=== PATIENT | female | born 1990 | race American Indian/Alaskan Native ===

== ENCOUNTER 2018-09-29 14:12 | Outpatient (CLI) | payer BC, MEDICAID ==
[2018-09-29] MEDS ORDERED: LACTATED RINGERS 1,000 ML IV ONE (15:25)
[2018-09-29 15:54] VITALS: BP 118/83
[2018-09-29 16:53] LABS: Bilirubin,Urine NEG (Negative); Blood,Urine NEG (Negative); Color,Urine Yellow (Yellow); Mucus,Urine FEW /HPF; Protein,Urine <15 mg/dL mg/dL (Negative)
== END 2018-09-29 17:10 | disposition home or self-care (01) ==
LOC: TRG 14:12
PROVIDERS: ATTEND Obstetrics & Gynecology
DX: O62.9 Abnormality of forces of labor, unspecified (principal); Z3A.35 35 weeks gestation of pregnancy
CPT/HCPCS: 59025; 81001; 87086; 96360; J7120

== ENCOUNTER 2018-10-09 12:12 | Inpatient (IN) | payer MEDICAID ==
[2018-10-09 13:16] LABS: Bilirubin,Urine NEG (Negative); Blood,Urine NEG (Negative); Color,Urine Yellow (Yellow); Mucus,Urine FEW /HPF; Protein,Urine <15 mg/dL mg/dL (Negative)
[2018-10-09 13:25] LABS: Amphetamine Screen,Urine PRESUMPTIVE NEGATIVE; Benzodiazepines Screen,Urine PRESUMPTIVE NEGATIVE; Cannabinoid Screen,Urine PRESUMPTIVE NEGATIVE; Cocaine Screen,Urine PRESUMPTIVE NEGATIVE; Methadone Screen,Urine PRESUMPTIVE NEGATIVE; Opiate Screen,Urine PRESUMPTIVE NEGATIVE
[2018-10-09] MEDS ORDERED: STADOL IV PRN (14:05)
[2018-10-09] MEDS ORDERED: XYLOCAINE 2% INFILTRATI ONE (14:05)
[2018-10-09] MEDS ORDERED: MINERAL OIL PO PRN (14:05)
[2018-10-09] MEDS ORDERED: ZOFRAN IV PRN (14:05)
[2018-10-09] MEDS ORDERED: SUBLIMAZE IV PRN (14:05)
[2018-10-09] MEDS ORDERED: BRETHINE SUB-Q PRN (14:05)
[2018-10-09] MEDS ORDERED: BRETHINE IVP PRN (14:05)
[2018-10-09 14:39] LABS: Hemoglobin 8.4 gm/dl (10.1-14.3); Mean Corpuscular HGB Conc 31 % (30-34); Platelet Count 259 K/mm3 (140-440); Red Blood Count 3.92 M/mm3 (3.65-5.03); Red Cell Distribution Width 17.5 % (13.2-15.2)
[2018-10-09 14:47] LABS: Mean Corpuscular Volume 69 fl (79-97)
[2018-10-09] MEDS: LACTATED RINGERS 1,000 ML IV SCH ×2 (14:59→22:47)
[2018-10-09] MEDS ORDERED: PITOCin/NS 20 UNIT/1000ML DRIP 20 UNITS/1,000 ML BAG IV SCH (15:00)
[2018-10-09] MEDS: PITOCin/NS 30 UNIT/500ML 30 UNITS/500 ML BAG IV SCH (15:26)
--- NOTE | 2018-10-09 16:58 | History and Physical Report ---
History of Present Illness Date of examination: 10/09/18 Date of admission: 10/09/18 13:48 Chief complaint: contractions History of present illness: pt presents for r/o labor, c/o contractions. SROM in triage. Menstrual History Regularity: irregular Menses every: irregular days Duration: 5-7 LMP: 03/13/2018 LMP reliability: definite LMP character: normal test type: urine test Date: 07/13/2018 BC at conception: none Planned ? yes EDC Calculations LMP: 12/18/2018 EDC Confirmation: 10/28/2018 Gestational Age: 24 5/7 weeks Past History : 3 Term Births: 2 Premature Births: 0 Living Children: 2 Para: 2 Mult. Births: 0 Prev : 0 Prev. attempt? none Aborta: 0 Elect. Ab: 0 Spont. Ab: 0 Ectopics: 0 # 1 Delivery date: 12/17/2007 Weeks Gestation: 39 labor: no Delivery type: Hours of labor: 12 Anesthesia type: epidural Delivery location: [facility] Sex: Female weight: 6-9 Name: Alicia # 2 Delivery date: 03/16/2014 Weeks Gestation: 38 Delivery type: Forceps Hours of labor: 12 Anesthesia type: epidural Delivery location: [facility] Sex: female weight: 6.31 Name: Aguilar Past Medical History: Reviewed history from 12/16/2013 and no changes required: Negative Past Medical History Past Surgical History: Reviewed history from 12/16/2013 and no changes required: negative Past Medical History Anesthesia Complications: negative Anemia: negative Autoimmune Disorder: negative Bleeding Disorder: negative Blood Transfusions: negative Breast Disease: negative Diabetes: negative Heart Disease: negative Hypertension: negative Hepatitis/Liver Disease: negative Kidney Disease/UTI: negative Neurologic/Epilepsy/Migraines: negative Phlebitis/Varicosities: negative Psychiatric: negative Pulmonary Disease/Asthma: negative Thyroid Disease: negative Hospitalizations: negative Surgery (Non-hematologist oncologist): negative Abnormal PAP: negative Social Hx: Patient is single Smoking History: Patient is a former smoker. Infection History Hx of STD: none Hepatitis B Risk Eval: low risk Personal hx. of genital herpes: no Partner hx. of genital herpes: no Rash, Viral, or Febrile illness since last LMP? no Genetic History Congenital Heart Defect: Mom: no Dad: no [place] Disease: Mom: no Dad: no Thalassemia Mom: no Dad: no Neural Tube Defect Mom: no Dad: no Down's Syndrome Mom: no Dad: no Perez-Sachs Mom: no Dad: no Sickle Cell Disease/Trait Mom: no Dad: no Hemophilia Mom: no Dad: no Muscular Dystrophy Mom: no Dad: no Cystic Fibrosis Mom: no Dad: no Bisi Chorea Mom: no Dad: no Mental Retardation Mom: no Dad: no Fragile X Mom: no Dad: no Other Genetic/Chromosomal Disorder Mom: no Dad: no Child w/other defect Mom: no Dad: no Enviromental Exposures Xray Exposure: no Medication, drug, or alcohol use since LMP: no Chemical/Other Exposure: no Exposure to Cat Liter: no Hx of Parvovirus (Fifth Disease): no Occupational Exposure to Children: none Current Allergies (reviewed today): No known allergies Past History Past Medical History: other (see HPI) Past Surgical History: other (see HPI) PRINTING TABLE HAND History: other (see HPI) Family/Genetic History: other (see HPI) Social history: other (see HPI) - Obstetrical History : 3 Medications and Allergies Allergies Allergy/AdvReac Type Severity Reaction Status Date / Time No Known Allergies Allergy Verified 09/29/18 15:22 Home Medications Medication Instructions Recorded Confirmed Last Taken Type No Known Home Medications [No 09/29/18 09/29/18 Unknown History Reported Home Medications] Active Meds: Active Medications Butorphanol Tartrate (Stadol) 2 mg IV Q2H PRN PRN Reason: Pain , Severe (7-10) Ephedrine Sulfate (Ephedrine Sulfate) 10 mg IV Q2M PRN PRN Reason: Hypotension Fentanyl (Sublimaze) 100 mcg IV Q2H PRN PRN Reason: Labor Pain Oxytocin/Sodium Chloride (Pitocin/Ns 20 Unit/1000ml Drip) 20 units in 1,000 mls @ 125 mls/hr IV DIRECT GERA Oxytocin/Sodium Chloride (Pitocin/Ns 30 Unit/500ml) 30 units in 500 mls @ 4 mls/hr IV TITR GERA; Protocol Last Titration: 10/09/18 16:24 Dose: 0 ml/hr, 0 mls/hr Documented by: Lactated Ringer's (Lactated Ringers) 1,000 mls @ 125 mls/hr IV DIRECT GERA Last Admin: 10/09/18 14:59 Dose: 125 mls/hr Documented by: Mineral Oil (Mineral Oil) 30 ml PO QHS PRN PRN Reason: Constipation Ondansetron HCl (Zofran) 4 mg IV Q8H PRN PRN Reason: Nausea And Vomiting Terbutaline Sulfate (Brethine) 0.25 mg SUB-Q ONCE PRN PRN Reason: Hyperstimulation/Hypertonicity Terbutaline Sulfate (Brethine) 0.25 mg IVP ONCE PRN PRN Reason: Hyperstimulation/Hypertonicity Review of Systems All systems: negative Genitourinary: leakage of fluid (clear), contractions (irregular) - Vital Signs Vital signs: Vital Signs Pulse BP 116 H 136/93 10/09/18 12:35 10/09/18 12:35 Temp Pulse Resp BP Pulse Ox 97.9 F 100 H 20 113/67 10/09/18 16:32 10/09/18 16:30 10/09/18 16:32 10/09/18 16:30 - Physical Exam Breasts: Positive: normal Cardiovascular: Regular rate, Normal S1, Normal S2 Lungs: Positive: Clear to auscultation Abdomen: Positive: normal appearance, soft, normal bowel sounds. Negative: distention, tenderness Vulva: both: normal Vagina: Positive: normal moisture. Negative: discharge Cervix: Negative: lesion, discharge Uterus: Positive: normal size, normal contour Adnexa: both: normal Anus/Rectum: Positive: normal perianal skin, heme negative. Negative: rectal mass, hemorrhoids Extremities: Positive: normal Deep Tendon Reflex Grade: Normal +2 - Obstetrical FHR: auscultation normal Uterine Contraction Monitor Mode: External Uterine Contraction Pattern: Irregular Uterine Tone Measurement Phase: Contraction Uterine Contraction Intensity: Mild Results Result Diagrams: 10/09/18 14:05 Abnormal lab results 10/09/18 Range/Units 14:05 Hgb 8.4 L (10.1-14.3) gm/dl Hct 27.0 L (30.3-42.9) % MCV 69 L (79-97) fl MCH 22 L (28-32) pg RDW 17.5 H (13.2-15.2) % All other labs normal. Assessment and Plan Patient presents to triage with c/o contractions. SROM clear fluid noted while in triage. SVE 1/0/-3, vertex, per picking supervisor. Routine admission orders placed in EMR, pitocin augmentation. GBS negative. Category 1 tracing, irregular contractions noted at this time. VSSAF. Will continue to monitor, plan for .
--- NOTE | 2018-10-09 17:59 | Ultrasound Report ---
PROCEDURE: US OB LIMITED TECHNIQUE: Limited OB ultrasound. LMP 01/21/2018 with estimated age 37 weeks 2 days and EDC 10/28/2018 HISTORY: position COMPARISONS: None FINDINGS: Limited evaluation demonstrates a cephalic positioning of the fetus. heart tones are 138 bpm IMPRESSION: Single viable at 37 weeks 2 days in a cephalic position. This document is electronically signed by Ashley Putnam MD., Oct 09 2018 05:57:38 PM ET
--- NOTE | 2018-10-09 21:43 | Progress Note ---
Assessment and Plan - Patient Problems (1) Active labor at term Current Visit: No Status: Acute (2) Premature rupture of membranes Current Visit: No Status: Acute Subjective - Subjective Date of service: 10/09/18 Principal diagnosis: IUP@37weeks. SROM Patient reports: movement normal, contractions, no new complaints Objective - Vital Signs Vital Signs: Vital Signs - 12hr 10/09/18 10/09/18 10/09/18 12:35 12:36 12:40 Temperature 98.8 F Pulse Rate 116 H 123 H 122 H Respiratory 20 Rate Blood Pressure 136/93 140/90 Blood Pressure 138/91 [Left] O2 Sat by Pulse Oximetry 10/09/18 10/09/18 10/09/18 12:41 12:51 13:06 Temperature Pulse Rate 123 H 118 H 116 H Respiratory Rate Blood Pressure 138/91 131/87 130/81 Blood Pressure [Left] O2 Sat by Pulse Oximetry 10/09/18 10/09/18 10/09/18 13:21 13:37 14:25 Temperature 98.5 F Pulse Rate 112 H 102 H Respiratory 20 Rate Blood Pressure 125/78 126/70 Blood Pressure [Left] O2 Sat by Pulse Oximetry 10/09/18 10/09/18 10/09/18 14:59 16:01 16:30 Temperature Pulse Rate 101 H 92 H 100 H Respiratory Rate Blood Pressure 136/86 123/69 113/67 Blood Pressure [Left] O2 Sat by Pulse Oximetry 10/09/18 10/09/18 10/09/18 16:32 17:00 17:30 Temperature 97.9 F Pulse Rate 82 83 Respiratory 20 Rate Blood Pressure 118/69 121/80 Blood Pressure [Left] O2 Sat by Pulse Oximetry 10/09/18 10/09/18 10/09/18 18:09 18:13 18:29 Temperature 97.8 F Pulse Rate 82 88 Respiratory Rate Blood Pressure 150/90 146/88 Blood Pressure [Left] O2 Sat by Pulse Oximetry 10/09/18 10/09/18 10/09/18 18:59 19:29 20:00 Temperature Pulse Rate 87 87 85 Respiratory Rate Blood Pressure 119/78 119/75 133/76 Blood Pressure [Left] O2 Sat by Pulse Oximetry 10/09/18 10/09/18 10/09/18 20:29 21:00 21:30 Temperature Pulse Rate 88 91 H 87 Respiratory Rate Blood Pressure 110/64 115/57 122/85 Blood Pressure [Left] O2 Sat by Pulse 98 Oximetry 10/09/18 10/09/18 21:35 21:40 Temperature Pulse Rate 84 87 Respiratory Rate Blood Pressure Blood Pressure [Left] O2 Sat by Pulse 98 98 Oximetry - Exam Breasts: deferred Cardiovascular: Regular rate Lungs: Normal air movement Abdomen: Present: normal appearance, distention. Absent: tenderness Vulva: both: normal Uterus: Present: fundal height above umbilicus. Absent: tenderness FHR: category 1 Uterine Contraction Monitor Mode: External Cervical Dilatation: 2 Cervical Effacement Percentage: 40 station: -2 Uterine Contraction Pattern: Regular Extremities: normal - Labs Labs: Abnormal Labs 10/09/18 14:05 Hgb 8.4 L Hct 27.0 L MCV 69 L MCH 22 L RDW 17.5 H Laboratory Results - last 24 hr 10/09/18 10/09/18 10/09/18 14:01 14:05 Unknown WBC 7.2 RBC 3.92 Hgb 8.4 L Hct 27.0 L MCV 69 L MCH 22 L MCHC 31 RDW 17.5 H Plt Count 259 Urine Color Yellow Urine Turbidity Clear Urine pH 7.0 Ur Specific [place] 1.017 Urine Protein <15 mg/dl Urine Glucose (UA) Neg Urine Ketones Neg Urine Blood Neg Urine Nitrite Neg Urine Bilirubin Neg Urine Urobilinogen 4.0 Ur Leukocyte Esterase Neg Urine WBC (Auto) 1.0 Urine RBC (Auto) 1.0 U Epithel Cells (Auto) 1.0 Urine Mucus Few Urine Opiates Screen Urine Methadone Screen Ur Barbiturates Screen Ur Phencyclidine Scrn Ur Amphetamines Screen U Benzodiazepines Scrn Urine Cocaine Screen U Marijuana (THC) Screen Drugs of Abuse Note Blood Type O POSITIVE Antibody Screen Negative 10/09/18 Unknown WBC RBC Hgb Hct MCV MCH MCHC RDW Plt Count Urine Color Urine Turbidity Urine pH Ur Specific [place] Urine Protein Urine Glucose (UA) Urine Ketones Urine Blood Urine Nitrite Urine Bilirubin Urine Urobilinogen Ur Leukocyte Esterase Urine WBC (Auto) Urine RBC (Auto) U Epithel Cells (Auto) Urine Mucus Urine Opiates Screen Presumptive negative Urine Methadone Screen Presumptive negative Ur Barbiturates Screen Presumptive negative Ur Phencyclidine Scrn Presumptive negative Ur Amphetamines Screen Presumptive negative U Benzodiazepines Scrn Presumptive negative Urine Cocaine Screen Presumptive negative U Marijuana (THC) Screen Presumptive negative Drugs of Abuse Note Disclamer Blood Type Antibody Screen
[2018-10-10] MEDS: LACTATED RINGERS 1,000 ML IV SCH ×4 (00:51→15:11)
[2018-10-10] MEDS ORDERED: AMPICILLIN/NS 2 GM/100 ML 2 GM/100 ML BAG IV ONE (05:27)
[2018-10-10] MEDS ORDERED: NARCAN 2 MG/2 ML IV PRN (06:09)
--- NOTE | 2018-10-10 06:16 | Anesthesia Day of Surgery ---
Anesthesia Day of Surgery - Day of Surgery Patient Examined: Yes Patient H&P Reviewed: Yes Patient is NPO: Yes Beta Blockers: No Cardiac Clearance: No Pulmonary Clearance: No Richie's Test: N/A
--- NOTE | 2018-10-10 06:16 | Anesthesia Consultation ---
Anesthesia Consult and Med Hx Date of service: 10/10/18 - Airway Anesthetic Teeth Evaluation: Good ROM Head & Neck: Adequate Mental/Hyoid Distance: Adequate Mallampati Class: Class I Intubation Access Assessment: Probably Good - Pulmonary Exam CTA: Yes - Cardiac Exam Cardiac Exam: RRR - Pre-Operative Health Status ASA Pre-Surgery Classification: ASA2 Proposed Anesthetic Plan: Epidural - Pulmonary Hx Smoking: No (former smoker) Hx Asthma: No Hx Respiratory Symptoms: No SOB: No COPD: No Home Oxygen Therapy: No Hx Pneumonia: No Hx Sleep Apnea: No - Cardiovascular System Hx Hypertension: No Hx Coronary Artery Disease: No Hx Heart Attack/AMI: No Hx Angina: No Hx Percutaneous Transluminal Coronary Angioplasty (PTCA): No Hx Cardia Arrhythmia: No Hx Pacemaker: No Hx Internal Defibrillator: No Hx Valvular Heart Disease: No Hx Heart Murmur: No Hx Peripheral Vascular Disease: No - Central Nervous System Hx Neuromuscular Disorder: No Hx Seizures: No CVA: No Hx Back Pain: No Hx Psychiatric Problems: No - Gastrointestinal Hx Ulcer: No Hx Gastroesophageal Reflux Disease: No - Endocrine Hx Renal Disease: No Hx End Stage Renal Disease: No Hx Cirrhosis: No Hx Liver Disease: No Hx Insulin Dependent Diabetes: No Hx Non-Insulin Dependent Diabetes: No Hx Thyroid Disease: No Hx Hypothyroidism: No Hx Hyperthyroidism: No - Hematic Hx Anemia: No Hx Sickle Cell Disease: No - Other Systems Hx Alcohol Use: No Hx Substance Use: No Hx Cancer: No Hx Obesity: No
--- NOTE | 2018-10-10 06:17 | Post Anesthesia Evaluation ---
- Post Anesthesia Evaluation Patient Participated: Yes Airway Patent: Yes Stable Respiratory Function: Yes Nausea/Vomiting: No Temp > 96.8F: Yes Pain Manageable: Yes Adequeate Hydration: Yes Anesthesia Complications: No Block Receding Appropriately: Yes Patient on Ventilator: No
--- NOTE | 2018-10-10 06:33 | Progress Note ---
Assessment and Plan - Patient Problems (1) Active labor at term Current Visit: Yes Status: Acute (2) Premature rupture of membranes Current Visit: Yes Status: Acute Qualifiers: PROM onset of labor timing: onset of labor within 24 hours of rupture Plan to address problem: continue pitocin, (3) 37 weeks gestation of Current Visit: Yes Status: Acute Subjective - Subjective Date of service: 10/10/18 Principal diagnosis: IUP@37weeks. SROM Patient reports: movement normal, contractions, no new complaints Objective - Vital Signs Vital Signs: Vital Signs - 12hr 10/09/18 10/09/18 10/09/18 18:29 18:59 19:29 Temperature Pulse Rate 88 87 87 Respiratory Rate Blood Pressure 146/88 119/78 119/75 O2 Sat by Pulse Oximetry 10/09/18 10/09/18 10/09/18 20:00 20:29 21:00 Temperature Pulse Rate 85 88 91 H Respiratory Rate Blood Pressure 133/76 110/64 115/57 O2 Sat by Pulse Oximetry 10/09/18 10/09/18 10/09/18 21:30 21:35 21:40 Temperature Pulse Rate 87 84 87 Respiratory Rate Blood Pressure 122/85 O2 Sat by Pulse 98 98 98 Oximetry 10/09/18 10/09/18 10/09/18 21:45 21:50 21:55 Temperature Pulse Rate 74 82 82 Respiratory Rate Blood Pressure O2 Sat by Pulse 98 98 98 Oximetry 10/09/18 10/09/18 10/09/18 22:00 22:05 22:10 Temperature Pulse Rate 76 85 84 Respiratory Rate Blood Pressure 117/78 O2 Sat by Pulse 97 97 97 Oximetry 10/09/18 10/09/18 10/09/18 22:15 22:20 22:25 Temperature Pulse Rate 80 80 80 Respiratory Rate Blood Pressure O2 Sat by Pulse 97 97 97 Oximetry 10/09/18 10/09/18 10/09/18 22:30 22:45 22:46 Temperature 98 F Pulse Rate 82 78 Respiratory 16 16 16 Rate Blood Pressure 117/70 119/70 O2 Sat by Pulse 97 Oximetry 10/09/18 10/09/18 10/09/18 22:59 23:02 23:07 Temperature Pulse Rate 83 86 90 Respiratory Rate Blood Pressure 138/82 O2 Sat by Pulse 97 96 Oximetry 10/09/18 10/09/1810/09/19 23:12 23:17 23:22 Temperature Pulse Rate 92 H 84 90 Respiratory Rate Blood Pressure O2 Sat by Pulse 98 97 96 Oximetry 10/09/18 10/09/18 10/09/18 23:27 23:30 23:32 Temperature Pulse Rate 89 86 83 Respiratory Rate Blood Pressure 136/83 O2 Sat by Pulse 99 95 Oximetry 10/09/18 10/09/18 10/09/18 23:37 23:42 23:47 Temperature Pulse Rate 86 80 93 H Respiratory Rate Blood Pressure O2 Sat by Pulse 97 96 97 Oximetry 10/09/18 10/09/18 10/09/18 23:52 23:57 23:59 Temperature Pulse Rate 79 78 82 Respiratory Rate Blood Pressure 122/80 O2 Sat by Pulse 97 98 Oximetry 10/10/18 10/10/18 10/10/18 00:02 00:10 00:15 Temperature Pulse Rate 82 89 82 Respiratory Rate Blood Pressure O2 Sat by Pulse 97 98 96 Oximetry 10/10/18 10/10/18 10/10/18 00:20 00:25 00:29 Temperature Pulse Rate 85 78 75 Respiratory Rate Blood Pressure 124/76 O2 Sat by Pulse 97 97 Oximetry 10/10/18 10/10/18 10/10/18 00:30 00:35 00:40 Temperature Pulse Rate 86 68 80 Respiratory Rate Blood Pressure O2 Sat by Pulse 97 96 96 Oximetry 10/10/18 10/10/18 10/10/18 00:45 00:50 00:55 Temperature Pulse Rate 77 82 83 Respiratory Rate Blood Pressure O2 Sat by Pulse 96 96 98 Oximetry 10/10/18 10/10/18 10/10/18 00:59 01:29 01:59 Temperature Pulse Rate 88 72 71 Respiratory Rate Blood Pressure 114/69 136/76 124/75 O2 Sat by Pulse Oximetry 10/10/18 10/10/18 10/10/18 02:29 02:59 03:30 Temperature 98.4 F Pulse Rate 68 70 75 Respiratory 16 Rate Blood Pressure 123/74 121/74 132/79 O2 Sat by Pulse Oximetry 10/10/18 10/10/18 10/10/18 04:00 04:30 05:00 Temperature Pulse Rate 75 68 78 Respiratory Rate Blood Pressure 110/73 123/74 134/69 O2 Sat by Pulse Oximetry 10/10/18 10/10/18 10/10/18 05:08 05:13 05:18 Temperature Pulse Rate 75 66 67 Respiratory Rate Blood Pressure O2 Sat by Pulse 100 99 100 Oximetry 10/10/18 10/10/18 10/10/18 05:25 05:29 05:30 Temperature Pulse Rate 76 74 80 Respiratory Rate Blood Pressure 127/79 O2 Sat by Pulse 99 98 Oximetry 10/10/18 10/10/18 10/10/18 05:35 05:49 05:50 Temperature Pulse Rate 87 79 81 Respiratory Rate Blood Pressure 128/81 O2 Sat by Pulse 97 97 94 Oximetry 10/10/18 10/10/18 10/10/18 05:55 05:56 05:58 Temperature Pulse Rate 84 82 101 H Respiratory Rate Blood Pressure 124/71 118/67 118/64 O2 Sat by Pulse 100 Oximetry 10/10/18 10/10/18 10/10/18 06:00 06:04 06:05 Temperature Pulse Rate 89 91 H 88 Respiratory Rate Blood Pressure 119/68 117/69 O2 Sat by Pulse 99 99 Oximetry 10/10/18 10/10/18 10/10/18 06:09 06:10 06:14 Temperature Pulse Rate 83 88 83 Respiratory Rate Blood Pressure 122/71 123/75 O2 Sat by Pulse 99 Oximetry 10/10/18 10/10/18 10/10/18 06:15 06:20 06:25 Temperature Pulse Rate 86 77 73 Respiratory Rate Blood Pressure 112/63 124/75 O2 Sat by Pulse 100 96 99 Oximetry - Exam Breasts: deferred Lungs: Normal air movement Abdomen: Present: normal appearance, soft. Absent: tenderness Vulva: both: normal Uterus: Present: fundal height above umbilicus. Absent: tenderness FHR: category 1 Cervical Dilatation: 3 (now with epidural, VE easier, forebag palpated, patient aware, discussed release of forebag and internal monitoring, patient agreed, forebafg release with clear fluid, IUPC placed w/o difficulty) Cervical Effacement Percentage: 50 station: -1 Uterine Contraction Pattern: Regular Extremities: normal - Labs Labs: Abnormal Labs 10/09/18 14:05 Hgb 8.4 L Hct 27.0 L MCV 69 L MCH 22 L RDW 17.5 H Laboratory Results - last 24 hr 10/09/18 10/09/18 10/09/18 14:01 14:05 Unknown WBC 7.2 RBC 3.92 Hgb 8.4 L Hct 27.0 L MCV 69 L MCH 22 L MCHC 31 RDW 17.5 H Plt Count 259 Urine Color Yellow Urine Turbidity Clear Urine pH 7.0 Ur Specific [place] 1.017 Urine Protein <15 mg/dl Urine Glucose (UA) Neg Urine Ketones Neg Urine Blood Neg Urine Nitrite Neg Urine Bilirubin Neg Urine Urobilinogen 4.0 Ur Leukocyte Esterase Neg Urine WBC (Auto) 1.0 Urine RBC (Auto) 1.0 U Epithel Cells (Auto) 1.0 Urine Mucus Few Urine Opiates Screen Urine Methadone Screen Ur Barbiturates Screen Ur Phencyclidine Scrn Ur Amphetamines Screen U Benzodiazepines Scrn Urine Cocaine Screen U Marijuana (THC) Screen Drugs of Abuse Note Blood Type O POSITIVE Antibody Screen Negative 10/09/18 Unknown WBC RBC Hgb Hct MCV MCH MCHC RDW Plt Count Urine Color Urine Turbidity Urine pH Ur Specific [place] Urine Protein Urine Glucose (UA) Urine Ketones Urine Blood Urine Nitrite Urine Bilirubin Urine Urobilinogen Ur Leukocyte Esterase Urine WBC (Auto) Urine RBC (Auto) U Epithel Cells (Auto) Urine Mucus Urine Opiates Screen Presumptive negative Urine Methadone Screen Presumptive negative Ur Barbiturates Screen Presumptive negative Ur Phencyclidine Scrn Presumptive negative Ur Amphetamines Screen Presumptive negative U Benzodiazepines Scrn Presumptive negative Urine Cocaine Screen Presumptive negative U Marijuana (THC) Screen Presumptive negative Drugs of Abuse Note Disclamer Blood Type Antibody Screen
[2018-10-10] MEDS: fentaNYL-BUPIV 2 MCG/ML-0.125% 200 MCG/100 ML BAG EPIDURAL SCH ×2 (06:54→14:56)
--- NOTE | 2018-10-10 08:14 | Progress Note ---
Assessment and Plan Patient resting comfortably in bed, reports epidural is working well, denies any complaints. Pitocin currently infusing at 24mu/min. Internal monitors in place tracing well. VSSAF. Continue current POC, anticipate . Subjective - Subjective Date of service: 10/10/18 Principal diagnosis: IUP@37weeks. SROM Interval history: pt presents for r/o labor, c/o contractions. SROM in triage. Menstrual History Regularity: irregular Menses every: irregular days Duration: 5-7 LMP: 03/13/2018 LMP reliability: definite LMP character: normal test type: urine test Date: 07/13/2018 BC at conception: none Planned ? yes EDC Calculations LMP: 12/18/2018 EDC Confirmation: 10/28/2018 Gestational Age: 24 5/7 weeks Past History : 3 Term Births: 2 Premature Births: 0 Living Children: 2 Para: 2 Mult. Births: 0 Prev : 0 Prev. attempt? none Aborta: 0 Elect. Ab: 0 Spont. Ab: 0 Ectopics: 0 # 1 Delivery date: 12/17/2007 Weeks Gestation: 39 labor: no Delivery type: Hours of labor: 12 Anesthesia type: epidural Delivery location: [facility] Infant Sex: Female weight: 6-9 Name: Alicia # 2 Delivery date: 03/16/2014 Weeks Gestation: 38 Delivery type: Forceps Hours of labor: 12 Anesthesia type: epidural Delivery location: [facility] Infant Sex: female weight: 6.31 Name: Aguilar Past Medical History: Reviewed history from 12/16/2013 and no changes required: Negative Past Medical History Past Surgical History: Reviewed history from 12/16/2013 and no changes required: negative Past Medical History Anesthesia Complications: negative Anemia: negative Autoimmune Disorder: negative Bleeding Disorder: negative Blood Transfusions: negative Breast Disease: negative Diabetes: negative Heart Disease: negative Hypertension: negative Hepatitis/Liver Disease: negative Kidney Disease/UTI: negative Neurologic/Epilepsy/Migraines: negative Phlebitis/Varicosities: negative Psychiatric: negative Pulmonary Disease/Asthma: negative Thyroid Disease: negative Hospitalizations: negative Surgery (Non-sheep or calf grader): negative Abnormal PAP: negative Social Hx: Patient is single Smoking History: Patient is a former smoker. Infection History Hx of STD: none Hepatitis B Risk Eval: low risk Personal hx. of genital herpes: no Partner hx. of genital herpes: no Rash, Viral, or Febrile illness since last LMP? no Genetic History Congenital Heart Defect: Mom: no Dad: no [place] Disease: Mom: no Dad: no Thalassemia Mom: no Dad: no Neural Tube Defect Mom: no Dad: no Down's Syndrome Mom: no Dad: no Perez-Sachs Mom: no Dad: no Sickle Cell Disease/Trait Mom: no Dad: no Hemophilia Mom: no Dad: no Muscular Dystrophy Mom: no Dad: no Cystic Fibrosis Mom: no Dad: no Bisi Chorea Mom: no Dad: no Mental Retardation Mom: no Dad: no Fragile X Mom: no Dad: no Other Genetic/Chromosomal Disorder Mom: no Dad: no Child w/other defect Mom: no Dad: no Enviromental Exposures Xray Exposure: no Medication, drug, or alcohol use since LMP: no Chemical/Other Exposure: no Exposure to Cat Liter: no Hx of Parvovirus (Fifth Disease): no Occupational Exposure to Children: none Current Allergies (reviewed today): No known allergies Patient reports: loss of fluid (clear), movement normal, contractions (irregular), no new complaints Objective - Vital Signs Vital Signs: Vital Signs - 12hr 10/09/18 10/09/18 10/09/18 20:29 21:00 21:30 Temperature Pulse Rate 88 91 H 87 Respiratory Rate Blood Pressure 110/64 115/57 122/85 Blood Pressure [Left] O2 Sat by Pulse 98 Oximetry 10/09/18 10/09/18 10/09/18 21:35 21:40 21:45 Temperature Pulse Rate 84 87 74 Respiratory Rate Blood Pressure Blood Pressure [Left] O2 Sat by Pulse 98 98 98 Oximetry 10/09/18 10/09/18 10/09/18 21:50 21:55 22:00 Temperature Pulse Rate 82 82 76 Respiratory Rate Blood Pressure 117/78 Blood Pressure [Left] O2 Sat by Pulse 98 98 97 Oximetry 10/09/18 10/09/18 10/09/18 22:05 22:10 22:15 Temperature Pulse Rate 85 84 80 Respiratory Rate Blood Pressure Blood Pressure [Left] O2 Sat by Pulse 97 97 97 Oximetry 10/09/18 10/09/18 10/09/18 22:20 22:25 22:30 Temperature 98 F Pulse Rate 80 80 82 Respiratory 16 Rate Blood Pressure 117/70 Blood Pressure [Left] O2 Sat by Pulse 97 97 97 Oximetry 10/09/18 10/09/18 10/09/18 22:45 22:46 22:59 Temperature Pulse Rate 78 83 Respiratory 16 16 Rate Blood Pressure 119/70 138/82 Blood Pressure [Left] O2 Sat by Pulse Oximetry 10/09/18 10/09/18 10/09/18 23:02 23:07 23:12 Temperature Pulse Rate 86 90 92 H Respiratory Rate Blood Pressure Blood Pressure [Left] O2 Sat by Pulse 97 96 98 Oximetry 10/09/18 10/09/18 10/09/18 23:17 23:22 23:27 Temperature Pulse Rate 84 90 89 Respiratory Rate Blood Pressure Blood Pressure [Left] O2 Sat by Pulse 97 96 99 Oximetry 10/09/18 10/09/18 10/09/18 23:30 23:32 23:37 Temperature Pulse Rate 86 83 86 Respiratory Rate Blood Pressure 136/83 Blood Pressure [Left] O2 Sat by Pulse 95 97 Oximetry 10/09/18 10/09/18 10/09/18 23:42 23:47 23:52 Temperature Pulse Rate 80 93 H 79 Respiratory Rate Blood Pressure Blood Pressure [Left] O2 Sat by Pulse 96 97 97 Oximetry 10/09/18 10/09/18 10/10/18 23:57 23:59 00:02 Temperature Pulse Rate 78 82 82 Respiratory Rate Blood Pressure 122/80 Blood Pressure [Left] O2 Sat by Pulse 98 97 Oximetry 10/10/18 10/10/18 10/10/18 00:10 00:15 00:20 Temperature Pulse Rate 89 82 85 Respiratory Rate Blood Pressure Blood Pressure [Left] O2 Sat by Pulse 98 96 97 Oximetry 10/10/18 10/10/18 10/10/18 00:25 00:29 00:30 Temperature Pulse Rate 78 75 86 Respiratory Rate Blood Pressure 124/76 Blood Pressure [Left] O2 Sat by Pulse 97 97 Oximetry 10/10/18 10/10/18 10/10/18 00:35 00:40 00:45 Temperature Pulse Rate 68 80 77 Respiratory Rate Blood Pressure Blood Pressure [Left] O2 Sat by Pulse 96 96 96 Oximetry 10/10/18 10/10/18 10/10/18 00:50 00:55 00:59 Temperature Pulse Rate 82 83 88 Respiratory Rate Blood Pressure 114/69 Blood Pressure [Left] O2 Sat by Pulse 96 98 Oximetry 10/10/18 10/10/18 10/10/18 01:29 01:59 02:29 Temperature Pulse Rate 72 71 68 Respiratory Rate Blood Pressure 136/76 124/75 123/74 Blood Pressure [Left] O2 Sat by Pulse Oximetry 10/10/18 10/10/18 10/10/18 02:59 03:30 04:00 Temperature 98.4 F Pulse Rate 70 75 75 Respiratory 16 Rate Blood Pressure 121/74 132/79 110/73 Blood Pressure [Left] O2 Sat by Pulse Oximetry 10/10/18 10/10/18 10/10/18 04:30 05:00 05:08 Temperature Pulse Rate 68 78 75 Respiratory Rate Blood Pressure 123/74 134/69 Blood Pressure [Left] O2 Sat by Pulse 100 Oximetry 10/10/18 10/10/18 10/10/18 05:13 05:18 05:25 Temperature Pulse Rate 66 67 76 Respiratory Rate Blood Pressure Blood Pressure [Left] O2 Sat by Pulse 99 100 99 Oximetry 10/10/18 10/10/18 10/10/18 05:29 05:30 05:35 Temperature Pulse Rate 74 80 87 Respiratory Rate Blood Pressure 127/79 Blood Pressure [Left] O2 Sat by Pulse 98 97 Oximetry 10/10/18 10/10/18 10/10/18 05:49 05:50 05:55 Temperature Pulse Rate 79 81 84 Respiratory Rate Blood Pressure 128/81 124/71 Blood Pressure [Left] O2 Sat by Pulse 97 94 100 Oximetry 10/10/18 10/10/18 10/10/18 05:56 05:58 06:00 Temperature Pulse Rate 82 101 H 89 Respiratory Rate Blood Pressure 118/67 118/64 119/68 Blood Pressure [Left] O2 Sat by Pulse 99 Oximetry 10/10/18 10/10/18 10/10/18 06:04 06:05 06:09 Temperature Pulse Rate 91 H 88 83 Respiratory Rate Blood Pressure 117/69 122/71 Blood Pressure [Left] O2 Sat by Pulse 99 Oximetry 10/10/18 10/10/18 10/10/18 06:10 06:14 06:15 Temperature Pulse Rate 88 83 86 Respiratory Rate Blood Pressure 123/75 Blood Pressure [Left] O2 Sat by Pulse 99 100 Oximetry 10/10/18 10/10/18 10/10/18 06:20 06:25 06:29 Temperature 97.9 F Pulse Rate 77 73 Respiratory 16 Rate Blood Pressure 112/63 124/75 Blood Pressure [Left] O2 Sat by Pulse 96 99 Oximetry 10/10/18 10/10/18 10/10/18 06:30 06:35 06:40 Temperature Pulse Rate 82 81 76 Respiratory Rate Blood Pressure 134/89 Blood Pressure [Left] O2 Sat by Pulse 99 98 98 Oximetry 10/10/18 10/10/18 10/10/18 06:45 06:50 06:52 Temperature Pulse Rate 74 72 Respiratory 16 Rate Blood Pressure Blood Pressure [Left] O2 Sat by Pulse 97 99 Oximetry 10/10/18 10/10/18 10/10/18 06:55 07:00 07:03 Temperature Pulse Rate 91 H 71 75 Respiratory Rate Blood Pressure 129/75 Blood Pressure [Left] O2 Sat by Pulse 95 98 Oximetry 10/10/18 10/10/18 10/10/18 07:05 07:10 07:15 Temperature Pulse Rate 82 79 80 Respiratory Rate Blood Pressure Blood Pressure [Left] O2 Sat by Pulse 98 98 96 Oximetry 10/10/18 10/10/18 10/10/18 07:20 07:26 07:28 Temperature Pulse Rate 72 74 78 Respiratory Rate Blood Pressure Blood Pressure [Left] O2 Sat by Pulse 98 96 94 Oximetry 10/10/18 10/10/18 10/10/18 07:30 07:34 07:36 Temperature Pulse Rate 78 71 74 Respiratory Rate Blood Pressure 133/74 Blood Pressure [Left] O2 Sat by Pulse 95 97 Oximetry 10/10/18 10/10/18 10/10/18 07:41 07:46 07:49 Temperature 97.9 F Pulse Rate 89 72 Respiratory 16 Rate Blood Pressure Blood Pressure [Left] O2 Sat by Pulse 96 100 Oximetry 10/10/18 10/10/18 10/10/18 07:51 07:56 07:58 Temperature Pulse Rate 69 66 70 Respiratory Rate Blood Pressure 142/81 Blood Pressure [Left] O2 Sat by Pulse 100 100 Oximetry 10/10/18 10/10/18 10/10/18 07:59 08:01 08:03 Temperature 97.7 F Pulse Rate 71 74 77 Respiratory 16 Rate Blood Pressure 129/76 Blood Pressure 142/81 [Left] O2 Sat by Pulse 100 Oximetry 10/10/18 10/10/18 08:06 08:11 Temperature Pulse Rate 68 64 Respiratory Rate Blood Pressure Blood Pressure [Left] O2 Sat by Pulse 100 100 Oximetry - Exam Breasts: normal Cardiovascular: Regular rate, Normal S1, Normal S2 Lungs: Clear to auscultation Abdomen: Present: normal appearance, soft, normal bowel sounds. Absent: distention, tenderness Vulva: both: normal Uterus: Present: normal FHR: auscultation normal Uterine Contraction Monitor Mode: External Uterine Contraction Pattern: Irregular Uterine Tone Measurement Phase: Contraction Uterine Contraction Intensity: Moderate Extremities: normal Deep Tendon Reflex Grade: Normal +2 - Labs Labs: Abnormal Labs 10/09/18 14:05 Hgb 8.4 L Hct 27.0 L MCV 69 L MCH 22 L RDW 17.5 H Laboratory Results - last 24 hr 10/09/18 10/09/18 10/09/18 14:01 14:05 Unknown WBC 7.2 RBC 3.92 Hgb 8.4 L Hct 27.0 L MCV 69 L MCH 22 L MCHC 31 RDW 17.5 H Plt Count 259 Urine Color Yellow Urine Turbidity Clear Urine pH 7.0 Ur Specific [place] 1.017 Urine Protein <15 mg/dl Urine Glucose (UA) Neg Urine Ketones Neg Urine Blood Neg Urine Nitrite Neg Urine Bilirubin Neg Urine Urobilinogen 4.0 Ur Leukocyte Esterase Neg Urine WBC (Auto) 1.0 Urine RBC (Auto) 1.0 U Epithel Cells (Auto) 1.0 Urine Mucus Few Urine Opiates Screen Urine Methadone Screen Ur Barbiturates Screen Ur Phencyclidine Scrn Ur Amphetamines Screen U Benzodiazepines Scrn Urine Cocaine Screen U Marijuana (THC) Screen Drugs of Abuse Note Blood Type O POSITIVE Antibody Screen Negative 10/09/18 Unknown WBC RBC Hgb Hct MCV MCH MCHC RDW Plt Count Urine Color Urine Turbidity Urine pH Ur Specific [place] Urine Protein Urine Glucose (UA) Urine Ketones Urine Blood Urine Nitrite Urine Bilirubin Urine Urobilinogen Ur Leukocyte Esterase Urine WBC (Auto) Urine RBC (Auto) U Epithel Cells (Auto) Urine Mucus Urine Opiates Screen Presumptive negative Urine Methadone Screen Presumptive negative Ur Barbiturates Screen Presumptive negative Ur Phencyclidine Scrn Presumptive negative Ur Amphetamines Screen Presumptive negative U Benzodiazepines Scrn Presumptive negative Urine Cocaine Screen Presumptive negative U Marijuana (THC) Screen Presumptive negative Drugs of Abuse Note Disclamer Blood Type Antibody Screen
[2018-10-10] MEDS: PITOCin/NS 30 UNIT/500ML 30 UNITS/500 ML BAG IV SCH ×6 (10:07→16:14)
[2018-10-10] MEDS: AMPICILLIN/NS 1 GM/50 ML 1 GM/50 ML BAG IV SCH ×3 (10:08→18:07)
--- NOTE | 2018-10-10 13:36 | Event Note ---
Date: 10/10/18 SVE 6.5/70/-2. Contractions q3m on TOCO, moderate by palpation. Occasional variable decelerations with contractions noted, moderate variability, 15x15 accelerations. Pitocin currently infusing at 30mu/min. Patient is afebrile, VSS. Continue current POC.
--- NOTE | 2018-10-10 16:13 | Event Note ---
Date: 10/10/18 SVE 6.5/80/-1, bloody show noted on exam glove. Cervix feels slightly swollen. DWP minimal change in exam, may consider alternative routes of delivery. Will reassess SVE in [address] Banuelos aware. Will continue to monitor.
--- NOTE | 2018-10-10 17:52 | Event Note ---
Date: 10/10/18 Patient remains comfortable, afebrile. Maternal HR low 100s. SVE 7.5/90/0, possible OP position. Category 1 tracing at this time. Dr. Banuelos at bedside. Will continue with current POC considering cervical change and mom and baby stable. Will continue to monitor closely.
--- NOTE | 2018-10-10 19:14 | Event Note ---
Date: 10/10/18 SVE 9.5/100/0. Pt remains afebrile and comfortable, opts to continue plan for vaginal delivery at this time. Dr. Banuelos aware. Will continue to monitor closely.
[2018-10-10] MEDS ORDERED: HEMABATE IM ONE (19:44)
[2018-10-10] MEDS ORDERED: CYTOTEC PR ONE (19:44)
[2018-10-10] MEDS ORDERED: TORADOL IV ONE ×2 (19:52→23:39)
[2018-10-10] MEDS ORDERED: TYLENOL ONE (20:08)
--- NOTE | 2018-10-10 20:11 | Procedure Note ---
OB Delivery Note - Delivery Date of Delivery: 10/10/18 .Net Architect: MARISABEL ÁLVAREZ Estimated blood loss: other (450) - Vaginal Delivery position: OA Intrapartum events: febrile- temp >100.3 Delivery induction: none Delivery augmentation: pitocin Delivery monitor: external FHT, internal uterine Route of delivery: Delivery placenta: spontaneous (complete and intact. to pathology for maternal fever) Episiotomy: none Delivery laceration: none Anesthesia: epidural Delivery comments: of viable female infant over intact perineum. Infant placed on mothers abdomen, drying and tactile stimulation produce vigorous cry. cord clamped x2 upon cessation of pulsation and cut by FOC. Placenta delivered complete and intact, 3VC. Fundus firm, steady trickle of blood noted, cytotec 800 mcg given NM. Moderate bleeding still noted. Hemabate given. Bleeding ceased, hemostatis. VSS. maternal fever noted. Placenta sent to pathology. apgars 8/9 wt 6#5. mother and stable condition. - A at 1 minute: 8 at 5 minutes: 9 Infant Gender: Female (6#5)
[2018-10-10] MEDS ORDERED: BENADRYL PO PRN (20:26)
[2018-10-10] MEDS ORDERED: LANSINOH TP PRN (20:26)
[2018-10-10] MEDS ORDERED: ZOFRAN IV PRN (20:26)
[2018-10-10] MEDS ORDERED: MILK OF MAGNESIA PO PRN (20:26)
[2018-10-10] MEDS ORDERED: PHENERGAN PO PRN (20:26)
[2018-10-10] MEDS ORDERED: TYLENOL PO PRN (20:26)
[2018-10-10] MEDS ORDERED: TUCKS PAD TP PRN (20:26)
[2018-10-10] MEDS ORDERED: DULCOLAX PR PRN (20:26)
[2018-10-10] MEDS ORDERED: LOMOTIL PO PRN (20:32)
[2018-10-10] MEDS ORDERED: PITOCin/NS 20 UNIT/1000ML DRIP 20 UNITS/1,000 ML BAG IV SCH (21:00)
[2018-10-10] MEDS ORDERED: SODIUM CHLORIDE FLUSH SYRINGE 10 ML IV PRN (21:00)
[2018-10-11] MEDS: IBUPROFEN PO SCH ×3 (00:52→23:37)
[2018-10-11] MEDS: FEOSOL PO SCH ×3 (00:54→22:04)
[2018-10-11] MEDS: COLACE PO SCH ×2 (00:54→22:04)
--- NOTE | 2018-10-11 08:36 | Discharge Summary ---
Providers - Providers Date of Admission: 10/09/18 13:48 Date of discharge: 10/11/18 (pt desires d/c but is aware it maybe tomorrow) Attending physician: DAISY AMES 10/10/18 20:30 Consult to Import Export Coordinator [CONS] Routine Reason For Exam: assistance with , SNS Primary care physician: DAISY AMES Hospitalization Reason for admission: active labor Delivery: Episiotomy: none Laceration: none Incision: normal Other procedures: none complications: none Discharge diagnosis: IUP at term delivered baby: female Hospital course: uncomplicated vaginal delivery Pt resting No c/o voiced VSS FF below umb Lochia small Perineum intact H&H pending. Doing well s/p vag delivery P: d/c today if stable and baby receives d/c . RTO 4 weeks PP care Pt desires Mirena for BC. Condition at discharge: Good Disposition: DC-01 TO HOME OR SELFCARE - Discharge Diagnoses (1) Spontaneous vaginal delivery Status: Acute Comment: RTO 4 weeks PP care Plan - Provider Discharge Summary Activity: routine, no sex for 6 weeks, no heavy lifting 4 weeks, no strenuous exercise Diet: routine Instructions: routine Additional instructions: [] Smoking cessation referral if applicable(refer to patient education folder for contact #) [] Refer to [facility]'s [facility] Booklet Call your doctor immediately for: * Fever > 100.5 * Heavy vaginal bleeding ( >1 pad per hour) * Severe persistent headache * Shortness of breath * Reddened, hot, painful area to leg or breast * Drainage or odor from incision. * Keep incision clean and dry at all times and follow doctor's instructions regarding bathing/showering - Follow up plan Follow up: DAISY AMES MD [Primary Care Provider] - 11/10/18 (Congratulations! Please call [phone] to schedule your visit in 4 weeks. Motrin/ibuprofen for cramping/pain. Call with concerns.)
[2018-10-11 09:29] LABS: Hematocrit 25.8 % (30.3-42.9); Hemoglobin 8.2 gm/dl (10.1-14.3)
[2018-10-11] MEDS: PRENATAL VITAMIN PO SCH (10:31)
[2018-10-12] MEDS: IBUPROFEN PO SCH (05:09)
[2018-10-12] MEDS: PRENATAL VITAMIN PO SCH (10:15)
[2018-10-12] MEDS: FEOSOL PO SCH (10:15)
[2018-10-12] MEDS: COLACE PO SCH (10:15)
[2018-10-12 17:08] VITALS: BP 135/87
== END 2018-10-12 18:00 | disposition home or self-care (01) | DRG 774 ==
LOC: TRG 12:12 → LD 13:48 → OB 10-10 22:53
PROVIDERS: ADMIT Obstetrics & Gynecology; ATTEND Obstetrics & Gynecology
PROC: 10E0XZZ Delivery of Products of Conception, External Approach (ICD-10-PCS; principal; 2018-10-10)
PROC: 3E0R3BZ Introduction of Anesthetic Agent into Spinal Canal, Percutaneous Approach (ICD-10-PCS; 2018-10-10)
PROC: 00HU33Z Insertion of Infusion Device into Spinal Canal, Percutaneous Approach (ICD-10-PCS; 2018-10-10)
DX: O42.02 Full-term premature rupture of membranes, onset of labor within 24 hours of rupture (principal); O75.2 Pyrexia during labor, not elsewhere classified; O76 Abnormality in fetal heart rate and rhythm complicating labor and delivery; Z3A.37 37 weeks gestation of pregnancy; Z37.0 Single live birth
CPT/HCPCS: 36415; 76815; 80307; 81001; 85014; 85018; 85027; 86592; 86850; 86900; 86901; 88307; G0378; A6250; J0290; J0595; J1885; J2590; J7120